=== PATIENT | male | born 2000 | race Caucasian/White ===

== ENCOUNTER 2019-06-26 19:16 | Emergency (ER) | payer BC, SELFPAY ==
[2019-06-26 19:21] VITALS: BP 139/80; PULSE 95; RESP 14; TEMP 36.9; O2SAT 99
--- NOTE | 2019-06-26 19:57 | ED.GENADUL_ITS ---
Discharge Plan Disposition Patient Disposition: HOME Condition: Good Discharge Details Chief Complaint: Laceration Clinical Impression: Laceration of scalp Primary Care Provider: Renetta,Local ED Provider: Anisha Pierce Home Meds and New Rx's Prescriptions: No Action No Known Home Meds RF: 0 Discharge Instructions Instructions: Laceration (ED), Staple Care (ED) Additional Instructions: Keep wound clean and dry. Lawrence may be removed in 1 week. Monitor for signs infection getting redness, warmth, drainage, increased pain, fever/chills. If you develop these symptoms, headache, visual changes, weakness or other new/worsening symptoms please seek care urgently once again. Otherwise, please call primary care to schedule follow-up for staple removal. Medical Decision Making Patient is a pleasant 18-year-old male presenting today with chief complaint of laceration to the top of his head. He reports a prior to arrival, he jumped off the last 3 steps going down a flight of stairs and struck his head on the low ceiling. States that this was not edge causing a linear laceration. Not lose conscious. Denies any headache. No visual changes. No weakness. Denies any neurologic deficit. No change in his vision. No nausea vomiting. Reports that his last tetanus was 4 years ago. He is feeling well at this point. He did not fall, no other injury the time of the incident. On exam, patient is alert and oriented. He is resting comfortably. He is a 3 cm laceration to the top of his head. This is not actively bleeding. Wound is into subcutaneous tissue, deep structures are intact. However, I do feel that closure with lawrence would be appropriate given the depth of the wound. We discussed her/benefits as well as expected procedural steps associate with closure. He voiced understanding and wished to proceed. Please see procedure note. Patient tolerated procedure well. Wound was copiously irrigated explored to base in a bloodless field. No foreign body or debris was noted. #2 lawrence were used to close the wound. Patient I discussed wound care in depth. He is not from the area and will follow with his primary care once home next week for staple removal. We discussed worsening symptoms, particularly signs of infection and neurologic deficits, and when to seek care urgently once again. All his questions and concerns were addressed and is agreement this plan. HPI General Mode of arrival: ambulatory . Date/Time Provider Initiated Documentation: 06/26/19 19:24 . Limitations to Documentation: no limitations . Information obtained by: patient and RN notes reviewed . History of Present Illness 18 year old M presents to the emergency department with the chief complaint of scalp laceration, described as mild (no pain at this time), and is localized to the head. Patient reports no radiation. Patient started experiencing this minute(s) Patient notes no other symptoms.; denies confusion, chest pain, fever/chills, headaches, nausea/vomiting, shortness of breath, syncope and weakness. Patient did receive the following treatments prior to arrival, none Related Data Home Medications Medication Instructions Recorded Confirmed Unknown [No Known Home Meds] 06/26/19 06/26/19 Allergies Allergy/AdvReac Type Severity Reaction Status Date / Time Fish Containing Products Allergy Unverified 06/26/19 19:24 General Stated Complaint: Laceration ELLIOT: 3 Review of Systems Constitutional Constitutional: Reports as per HPI, Denies chills, Denies fatigue, Denies fever(s), Denies frequent falls, Denies headache(s), Denies malaise and Denies weakness Eyes Eyes: Denies change in vision and Denies loss of vision ENT Ears, Nose, Mouth, and Throat: Denies vertigo, Denies dizziness and Denies headache(s) Cardiovascular Cardiovascular: Denies syncope Gastrointestinal Gastrointestinal: Denies nausea and Denies vomiting Genitourinary Genitourinary: Denies urinary incontinence Musculoskeletal Musculoskeletal: Reports as per HPI, Denies abnormal gait, Denies muscle weakness, Denies numbness, Denies radiating pain into limb and Denies tingling Integumentary/Breasts Skin/Breast: Reports as per HPI and Reports wounds Neurologic Neurologic: Reports as per HPI, Denies abnormal gait, Denies confusion, Denies vertigo, Denies dizziness, Denies syncope, Denies frequent falls, Denies headache(s), Denies loss of vision, Denies memory loss, Denies numbness, Denies sensory deficit, Denies tingling, Denies paresthesias and Denies weakness Psychiatric Psychiatric: Denies confusion and Denies memory loss Endocrine Endocrine: Denies fatigue [facility] Social History Smoking/Tobacco Use Status: Never Alcohol Intake: current Alcohol Intake frequency: a few times a month Alcohol type: hard liquor Drug use: Never Substance use type: does not use Do you feel safe at home: Yes Do you feel safe in your relationship?: Yes Exam Const General: cooperative, healthy appearing, comfortable, no acute distress and well developed Nutritional Appearance: average body habitus and well nourished Orientation: alert and awake [facility] Head: abnormal to inspection (3cm linear laceration top of head), no palpable skull fracture, signs of trauma, no Burdick's sign, no contusions, no hematomas, laceration, no occipital foramen tenderness, no palpable skull fracture, no raccoon eyes, no scalp tenderness and No periorbital ecchymosis Ears: hearing grossly normal bilaterally General nose exam: external nose normal Face and sinus: normal facial exam Resp Effort & Inspection: normal respiratory effort, able to speak in complete sentences and no respiratory distress Cardio Rate: regular rate Rhythm: regular rhythm Skin Trauma: laceration (as above) Neuro General: alert, awake, oriented x3, gait normal, tone normal, moves all extremities and CN's II-XI intact bilaterally Cognition: normal cognition Speech: speech normal Gait: normal gait Sensory Exam: no sensory deficits noted Psych Appearance: grossly normal and well kempt Mental Status: mental status grossly normal Speech and Movement: speech and movement normal Course Vital Signs Vital signs: Vital Signs Temperature 36.9 C 06/26/19 19:21 Pulse 95 H 06/26/19 19:21 Respiratory Rate 14 06/26/19 19:21 Blood Pressure 139/80 06/26/19 19:21 Pulse Oximetry 99 06/26/19 19:21 Temperature 36.9 C 06/26/19 19:21 Temperature Source Temporal Artery Scan 06/26/19 19:21 Pulse 95 H 06/26/19 19:21 Respiratory Rate 14 06/26/19 19:21 Respiratory Effort Non-Labored 06/26/19 19:22 Blood Pressure 139/80 06/26/19 19:21 Blood Pressure Position Sitting 06/26/19 19:21 Pulse Oximetry 99 06/26/19 19:21 Oxygen Delivery Method Room Air 06/26/19 19:21 Oxygen Flow Rate 0 06/26/19 19:21 Pain Level 0 06/26/19 19:21 Procedures Laceration Laceration 1: Site: scalp Size (cm): 3 Description: linear Depth: simple, single layer Local Anesthetic: Lidocaine 1% Amount of anesthesia used (mL): 4 Pre-repair: wound explored and irrigated extensively Size (cm): other (lawrence) Number of sutures: 2
== END 2019-06-26 20:30 | disposition home or self-care (01) ==
LOC: ER 20:46
PROVIDERS: Emergency Provider Physician Assistant
DX: S01.01XA Laceration without foreign body of scalp, initial encounter (principal); W22.8XXA Striking against or struck by other objects, initial encounter
CPT/HCPCS: 12002